=== PATIENT | male | born 1980 | race Caucasian/White ===

== ENCOUNTER → 2020-09-28 15:50 | Outpatient (CLI) | payer BC, SELFPAY ==
--- NOTE | ~2020-09-28 | XR_ITS ---
EXAMINATION: XR shoulder LT min 2V DATE: 09/28/2020 16:05 INDICATION: Left shoulder pain. TECHNIQUE: 4 views of left shoulder were obtained. COMPARISON: None. FINDINGS: Bone alignment is normal. No fracture. Glenohumeral joint is normal. There is mild acromioc lavicular joint osteoarthritis. There is calcific tendinitis of the rotator cuff. IMPRESSION: 1. Calcific tendinitis of the rotator cuff. 2. Mild left acromioclavicular joint osteoarthritis. Reviewed, dictated and finalized at location A.
== END ==
PROVIDERS: PCP Nurse Practitioner Family; Visit Provider Nurse Practitioner Family
DX: M75.32 Calcific tendinitis of left shoulder (principal); M19.012 Primary osteoarthritis, left shoulder
CPT/HCPCS: 73030

== ENCOUNTER → 2021-01-17 08:55 | Outpatient (CLI) | payer BC, SELFPAY ==
--- NOTE | ~2021-01-17 | MR_ITS ---
EXAMINATION: MR shoulder LT wo con DATE: 01/17/2021 09:50 INDICATION: Left shoulder pain TECHNIQUE: Magnetic resonance imaging (MRI) of the left shoulder was performed without intravenous co ntrast. Sequences included axial PD-weighted FS FSE, coronal oblique PD-weighted FS FSE, coronal obli que T2-weighted FS FSE, sagittal PD-weighted FS FSE, and sagittal T1-weighted SE. COMPARISON: None. FINDINGS: Coracoacromial arch: The acromion undersurface is curved in morphology (type II). The coracoacromial ligament is normal. M ild acromioclavicular osteoarthritis. Rotator cuff: Mild supraspinatus tendinopathy with shallow bursal sided tear/fraying extending for approximately 1 cm AP and medial collateral along the distal tendon with small amount of fluid signal extending betwe en the tendon fibers but without a clearly defined measurable tear defect. The infraspinatus, teres m inor and subscapularis tendons are normal. Normal rotator cuff muscle bulk and signal. Biceps tendon, glenoid labrum and glenohumeral cartilage: Long head of the biceps tendon is normal. Glenoid labrum is normal. Glenohumeral cartilage is normal. Fluid: Physiologic amount of fluid in the glenohumeral joint and biceps tendon sheath. No loose osteochondra l bodies. Small amount of fluid in the subacromial/subdeltoid bursa consistent with mild bursitis. Bones: There is mild marrow edema underlying the superior facet footplate of the supraspinatus tendon likely related to the previous described rotator cuff disease. Otherwise normal marrow signal. No fracture or pathologic marrow replacing process. IMPRESSION: 1. Supraspinatus tendinopathy with shallow bursal sided tear/fraying of the distal infraspinatus tend on. 2. Mild subacromial/subdeltoid bursitis. Reviewed, dictated and finalized at location A. IMPRESSION: 1. Supraspinatus tendinopathy with shallow bursal sided tear/fraying of the dis terrance infraspinatus tendon. 2. Mild subacromial/subdeltoid bursitis.
== END ==
PROVIDERS: PCP Physician Assistant Medical; Visit Provider Physician Assistant Medical
DX: M25.512 Pain in left shoulder (principal); M75.52 Bursitis of left shoulder
CPT/HCPCS: 73221

== ENCOUNTER 2021-06-15 15:47 | Outpatient (CLI) | payer BC, SELFPAY ==
--- NOTE | 2021-06-15 | ECG_ITS ---
Measurements Intervals [place] Rate: 74 P: 34 VT: 171 QRS: 70 QRSD: 101 T: 54 QT: 385 QTc: 428 Interpretive Statements SINUS RHYTHM NORMAL ECG Electronically Signed On 06-15-2021 18:43:36 FENCE MANUFACTURE SUPERVISOR by Ta Escudero D.O.
[2021-06-15 17:35] LABS: LDL Cholesterol Direct 253 mg/dL
[2021-06-15 17:42] LABS: Alanine Aminotransferase 33 U/L (4-50); Alkaline Phosphatase 74 U/L (38-126); Anion Gap 11 mmol/L (8-16); Aspartate Amino Transferase 28 U/L (17-59); Bilirubin,Total 0.4 mg/dL (0.2-1.3); Blood Urea Nitrogen 14 mg/dL (9-20); Calcium 9.8 mg/dL (8.4-10.2); Carbon Dioxide 25 mmol/L (22-30); Chloride 100 mmol/L (98-107); Estimated Glomerular Filt Rate > 60; Glucose 82 mg/dL (65-110); HDL Direct 48 mg/dL; Potassium 3.6 mmol/L (3.4-5.0); Sodium 136 mmol/L (137-145); Triglycerides 373 mg/dL (<150)
[2021-06-15 19:10] LABS: Cholesterol 369 mg/dL (0-200)
== END 2021-06-15 15:48 | disposition home or self-care (01) ==
LOC: ANHCARD 15:54
PROVIDERS: PCP Family Medicine; Visit Provider Nurse Practitioner Family
DX: E78.5 Hyperlipidemia, unspecified (principal)
CPT/HCPCS: 36415; 80053; 80061; 93005

== ENCOUNTER 2022-03-15 12:27 | Outpatient (CLI) | payer BC, SELFPAY ==
--- NOTE | ~2022-03-15 | US_ITS ---
US abdomen complete EXAMINATION: US Abdomen Complete INDICATION: Left upper quadrant pain PROCEDURE: Realtime High Resolution abdomen ultrasound. COMPARISON: No prior studies for comparison FINDINGS: There are gallbladder polyps measuring 5 mm or less. No gallstones, gallbladder wall thicke rita or pericholecystic fluid. Common bile duct measures 5 mm. Liver echotexture within normal limits without focal mass. Pancreas within normal limits. Pancreati c tail is obscured by bowel gas. Spleen is unremarkeable. Renal echotexture is within normal limits bilaterally without hydronephrosis, contour deforming mass or renal stone. Right kidney measures 10.6 cm. Left kidney measures 10.6 cm. Visualized aspects of the aorta and IVC are within normal limits. Portal vein is patent. No sonograph ic Tamez's sign indicated by the technologist. IMPRESSION: 1: Gallbladder polyps. Reviewed, dictated and finalized at location B. IMPRESSION: 1: Gallbladder polyps.
== END 2022-03-15 12:28 ==
LOC: MICIMG 12:28
PROVIDERS: PCP Nurse Practitioner Family; Visit Provider Nurse Practitioner Family
DX: R10.12 Left upper quadrant pain (principal); K82.4 Cholesterolosis of gallbladder
CPT/HCPCS: 76700

== ENCOUNTER 2024-01-14 05:49 | Emergency (ER) | payer BC, SELFPAY ==
[2024-01-14] VITALS (27 sets, daily range): BP systolic 110–148; BP diastolic 76–98; PULSE 78–96; RESP 10–29; O2SAT 94–100
--- NOTE | ~2024-01-14 | XR_ITS ---
Clinical Indication: Shortness of breath PA and lateral views of the chest: Comparison: None Findings: The lungs are clear, without evidence of focal consolidation or pleural effusion. Cardiome diastinal silhouette is within normal limits. Bones and soft tissues are unremarkable. Impression: Normal chest. Reviewed, dictated and finalized at [facility]. Impression: Normal chest.
--- NOTE | 2024-01-14 06:01 | ECG_ITS ---
Test Date: 2024-01-14 06:12:00 Measurements Intervals [place] Rate: 92 P: 37 CA: 164 QRS: 68 QRSD: 91 T: 48 QT: 345 QTc: 428 Interpretive Statements SINUS RHYTHM NORMAL ECG No previous ECG available for comparison Electronically Signed On 01-14-2024 06:23:39 CDT by Ta Escudero D.O.
--- NOTE | 2024-01-14 06:10 | ED.SOB ---
HPI - SOB/Dyspnea General Chief Complaint: Shortness of Breath/Dyspnea <Thor Goodwin DO - Last Filed: 01/14/24 07:16> Stated Complaint: sob <Thor Goodwin DO - Last Filed: 01/14/24 07:16> Time Seen by Provider: 01/14/24 06:04 <Thor Goodwin DO - Last Filed: 01/14/24 07:16> Source: patient <Thor Goodwin DO - Last Filed: 01/14/24 07:16> Limitations: no limitations <Thor Goodwin DO - Last Filed: 01/14/24 07:16> History of Present Illness HPI Narrative: Patient is a 43-year-old male presents to the emergency department complaining of pain when he takes a big deep breath in his chest. Patient notes you sleeping any woke up with that around 3:00 a.m., was not having it prior to going to bed, it seems to feeling present when he takes of a deep breath in. Patient notes he is on day 9 or 10 of COVID and is overall been seeming to get slightly better however the past approximately 3 days his throat it has been getting a lot more sore. Patient also notes he has been having cough with COVID that is overall seems to be improving and is productive of slight amount of clear sputum. Patient denies recent injuries, abdominal pain, vomiting, diarrhea. <Thor Goodwin DO - Last Filed: 01/14/24 07:16> Related Data Allergies/Adverse Reactions: Allergies Allergy/AdvReac Type Severity Reaction Status Date / Time No Known Allergies Allergy Verified 01/14/24 06:28 <Thor Goodwin DO - Last Filed: 01/14/24 07:16> Review of Systems Review of Systems: A 10 system review of systems was completed on the patient and is negative except for what is stated in the HPI. Nursing and ancillary documentation was reviewed. <hTor Goodwin DO - Last Filed: 01/14/24 07:16> PMFSH Past Medical History Medical History: Medical History Abnormal MRI, shoulder BMI 30.0-30.9,adult Body mass index [BMI] 25.0-25.9, adult (07/13/15) Elective procedure for unacceptable cosmetic appearance Hematochezia <Thor Goodwin DO - Last Filed: 01/14/24 07:16> Surgical History Surgical History: Surgical History History of appendectomy <Thor Goodwin DO - Last Filed: 01/14/24 07:16> Family History Family History: Family History Father Acute myocardial infarction Family history of heart disease in male family member before age 55 Mother Tobacco abuse Sibling No problems noted. <Thor Goodwin DO - Last Filed: 01/14/24 07:16> Social History Social History: Social History Smoking status: Never smoker Second hand tobacco smoke exposure: Yes Alcohol intake: former Substance use: former Substance use type: marijuana Do You Feel Safe in your Home?: Yes Lack of Transportation: No Lack of Food: Never True Current Housing: I Have Housing Concerned About Future Housing: No Difficulty Paying Gas/Electric Bills: No Difficulty Paying for Meds: No Currently Unemployed: No Education: Master's Degree or Higher Difficulty w/ Childcare or Family Care: No Living arrangements: with family Occupation/Education: occupation 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 Gender identity (if verbalized by the patient): Male <Thor Goodwin DO - Last Filed: 01/14/24 07:16> Comments At time of signature, I have reviewed and agree with nursing past medical, surgical, social and family history unless otherwise noted. Please see the nursing chart for further information. There is no relevant family history pertinent to the presenting complaint. <Thor Goodwin DO - Last Filed: 01/14/24 07:16> Exam Narrative: CONST: No acute distres
[2024-01-14] MEDS: KETOROLAC 15 MG/ML VIAL (*BKC) IV PUSH (06:22)
[2024-01-14 06:29] LABS: Basophils Absolute Auto 0.1 K/mm3 (0.0-0.1); Basophils Percent Auto 0.5 % (0.2-1.2); Eosinophils Absolute Auto 0.2 K/mm3 (0-0.3); Eosinophils Percent Auto 1.4 % (0-4.4); Hematocrit 39.2 % (42.0-52.0); Hemoglobin 13.3 g/dL (14.0-18.0); Immature Granulocyte Absolute 0.06 K/mm3 (0.00-0.031); Immature Granulocyte Percent A 0.6 % (0-0.5); Lymphocytes Absolute Auto 3.38 K/mm3 (0.9-3.2); Lymphocytes Percent Auto 31.5 % (18.3-44.2); Mean Corpuscular HGB Conc 33.9 g/dl (32-36); Mean Corpuscular Hemoglobin 30.3 pg (26-34); Mean Corpuscular Volume 89.3 fl (80-100); Mean Platelet Volume 9.5 fl (7.4-10.4); Monocytes Absolute Auto 0.8 K/mm3 (0.1-0.6); Monocytes Percent Auto 7.1 % (2.6-8.5); Neutrophils Absolute Auto 6.3 K/mm3 (1.3-6.7); Neutrophils Percent Auto 58.9 % (45.5-73.1); Platelet Count Result 336 k/mm3 (150-375); Red Blood Count 4.39 M/mm3 (4.6-6.20); Red Cell Distribution Width 13.2 % (11.5-14.5); White Blood Count 10.7 K/mm3 (4.5-10.0)
[2024-01-14 06:35] LABS: Alanine Aminotransferase 29 U/L (6-50); Albumin Level 4.1 g/dL (3.5-5.1); Alkaline Phosphatase 72 U/L (38-126); Anion Gap 11 mmol/L (4-12); Aspartate Amino Transferase 27 U/L (17-59); Bilirubin,Total 0.4 mg/dL (0.2-1.3); Blood Urea Nitrogen 17 mg/dL (9-20); Carbon Dioxide 27 mmol/L (22-30); Chloride 100 mmol/L (98-107); Estimated CRCL calculation 98 ml/min; Estimated Glomerular Filt Rate > 60; Glucose 93 mg/dL (65-110); Lipase 146 U/L (23-300); Magnesium 2.1 mg/dL (1.6-2.3); Potassium 3.9 mmol/L (3.4-5.0); Sodium 138 mmol/L (137-145)
[2024-01-14 06:47] LABS: Troponin I < 0.012 ng/mL (0.000-0.034)
[2024-01-14 06:51] LABS: Strep Group A RT-PCR NOT DETECTED (Negative)
[2024-01-14 07:37] LABS: Monoscreen Negative (Negative); Negative Monotest Control Negative (Negative); Positive Monotest Control Positive (Positive)
--- NOTE | 2024-01-14 08:59 | ECG_ITS ---
Test Date: 2024-01-14 09:02:23 Measurements Intervals [place] Rate: 89 P: 39 MD: 170 QRS: 73 QRSD: 93 T: 45 QT: 369 QTc: 450 Interpretive Statements SINUS RHYTHM NORMAL ECG Compared to ECG 01/14/2024 06:12:00 No significant changes Electronically Signed On 01-14-2024 09:39:15 CDT by Ta Escudero D.O.
[2024-01-14 09:31] LABS: Troponin I < 0.012 ng/mL (0.000-0.034)
[2024-01-14] MEDS: dexAMETHasone SOD PHOS INJ 10 MG/ML 1 ML VIAL IM (11:41)
== END 2024-01-14 11:45 | disposition home or self-care (01) ==
PROVIDERS: Emergency Medicine; Emergency Provider Student in an Organized Health Care Education/Training Program; PCP Family Medicine
DX: R09.1 Pleurisy (principal); J02.9 Acute pharyngitis, unspecified
CPT/HCPCS: 36415; 71046; 80053; 83690; 83735; 84484; 85025; 85380; 86308; 87651; 93005; 96372; 96374; 99284; J1100; J1885

== ENCOUNTER 2024-07-07 10:28 | Outpatient (CLI) | payer BC, SELFPAY ==
--- NOTE | 2024-07-07 10:40 | ECG_ITS ---
Test Date: 2024-07-07 10:49:47 Measurements Intervals [place] Rate: 86 P: 44 HI: 168 QRS: 78 QRSD: 92 T: 54 QT: 359 QTc: 430 Interpretive Statements SINUS RHYTHM Compared to ECG 01/14/2024 09:02:23 No significant changes Electronically Signed On 07-07-2024 10:52:50 HAND STEMMER by Geoffrey Agosto M.D.
--- OUTSIDE RECORDS SUMMARY | 2024-07-09 17:27 | XMS_ITS | Patient Health Summary ---
Author Organization [facility] Address [address] [place] [address] Care Team Providers Care Aerodynamic Consultant Name Role Phone Unavailable Primary Care Provider Unavailabl e Note from [facility],non-owned Affiliates and Associated Physician Practices is amultiple site organization consisting of ambulatory clinics and hospital sitesin [place], [place], [place] and [place]. This disclosure is being madepursuant to the Care Everywhere program and may not contain all information available regarding this patient. Last updated 18.[facility] Social History Tobacco Use Types Packs/Day Years Used Date Smoking Tobacco: Never Assessed Sex and Gender Information Value Date Recorded Sex Assigned at Not on file Gender Identity Not on file Sexual Orientation Not on file
--- OUTSIDE RECORDS SUMMARY | 2024-07-09 17:27 | XMS_ITS | Clinical Summary ---
Author Organization [facility] Address [address] [place] [address] Care Team Providers Care Captain Of Guards Name Role Phone Unavailable Primary Care Provider Unavailabl e Source Comments [facility],non-owned Affiliates and Associated Physician Practices is amultiple site organization consisting of ambulatory clinics and hospital sitesin [place], [place], [place] and [place]. This disclosure is being madepursuant to the Care Everywhere program and may not contain all information available regarding this patient. Last updated 18.[email or web address] [email or web address] Social History Tobacco Use Types Packs/Day Years Used Date Smoking Tobacco: Never Assessed Sex and Gender Information Value Date Recorded Sex Assigned at Not on file Gender Identity Not on file Sexual Orientation Not on file Plan of Treatment Health Maintenance Due Date Last Done Comments LIPID TESTING 1982 HIV SCREENING 1997 HEPATITIS C SCREENING 03/14/2000 DTAP/TDAP/TD VACCINES (1 - Tdap) 2001 HEPATITIS B VACCINE (1 of 3 - 19+ 3-dose series) 2001 COVID-19 VACCINE (2023-2 5 season) 2024 INFLUENZA VACCINE (#1) 2024 DEPRESSION SCREENING 06/17/2024 ZOSTER VACCINE (1 of 2) 2032 HIB VACCINE Aged Out No longer eligi ble based on patient's age to complete this topic HPV VACCINE Aged Out No longer eligi ble based on patient's age to complete this topic MENINGOCOCCAL (Group B) VACCINE Aged Out No longer eligible based on patient's age to complete this topic MENINGOCOCCAL VACCINE Aged Out No mery paula eligible based on patient's age to complete this topic PNEUMOCOCCAL VACCINE Aged Out No long er eligible based on patient's age to complete this topic
--- OUTSIDE RECORDS SUMMARY | 2024-07-09 17:27 | XMS_ITS | Referral Summary ---
Author Organization [facility] Address [address] [place] [address] Care Team Providers Care Fitting Room Attendant Name Role Phone Unavailable Primary Care Provider Unavailabl e Source Comments [facility],non-owned Affiliates and Associated Physician Practices is amultiple site organization consisting of ambulatory clinics and hospital sitesin [place], [place], [place] and [place]. This disclosure is being madepursuant to the Care Everywhere program and may not contain all information available regarding this patient. Last updated 18.[facility] Social History Tobacco Use Types Packs/Day Years Used Date Smoking Tobacco: Never Assessed Sex and Gender Information Value Date Recorded Sex Assigned at Not on file Gender Identity Not on file Sexual Orientation Not on file Plan of Treatment Not on file
--- OUTSIDE RECORDS SUMMARY | 2024-07-09 17:28 | XMS_ITS | Encounter Summary ---
Author Organization [facility] Address [address] [place] [address]. [place], [place] [id number] [place] [address] Care Team Providers Care Pricing Clerk Name Role Phone Unavailable Primary Care Provider Unavailabl e Encounter Details Date Type Department Care Team (Late st Contact Info) Description 04/22/2018 Abstract [facility] Conversion Md, Generic Conversion, Social History Tobacco Use Types Packs/Day Years Used Date Smoking Tobacco: Never Assessed Sex and Gender Information Value Date Recorded Sex Assigned at Not on file Legal Sex Male 8:06 AM CDT Gender Identity Not on file Sexual Orientation Not on file documented as of this encounter Plan of Treatment Not on file documented as of this encounter Visit Diagnoses Not on filedocumented in this encounter
--- OUTSIDE RECORDS SUMMARY | 2024-07-09 17:28 | XMS_ITS | Clinical Summary ---
Author Organization [facility] Address [address] [place] [address]. [place], [place] [id number] [place] [id number] Care Team Providers Care Systems Auditor Name Role Phone Unavailable Primary Care Provider Unavailabl e Social History Tobacco Use Types Packs/Day Years Used Date Smoking Tobacco: Never Assessed Sex and Gender Information Value Date Recorded Sex Assigned at Not on file Legal Sex Male 8:06 AM CDT Gender Identity Not on file Sexual Orientation Not on file Last Filed Vital Signs Vital Sign Reading Time Taken Comments Blood Pressure 144/96 09/16/2014 4:48 PM CDT Pulse 100 09/16/2014 4:48 PM CDT Temperature - - Respiratory Rate - - Oxygen Saturation - - Inhaled Oxygen Concentration - - Weight 81.6 kg (180 lb) 02/01/2012 9:13 AM CDT Height 175.3 cm (5' 9 ) 10/11/2011 8:41 AM CDT Body Mass Index 26.58 10/11/2011 8:41 AM CDT Plan of Treatment Health Maintenance Due Date Last Done Comments Annual Physical 1985 Hepatitis C 2000 DTaP, Tdap and Td Vaccines ( 1 - Tdap) 2001 Hepatitis B Vaccines (1 of 3 - 19+ 3-dose series) 2001 COVID-19 Vaccine (2023-2 5 season) 2024 Influenza Adult (#1) 2024 04/17/2011 HPV Vaccines Aged Out No longer eligi ble based on patient's age to complete this topic Meningococcal Vaccine Aged Out No mery paula eligible based on patient's age to complete this topic Pneumococcal Vaccine: Pediat rics (0 to 5 Years) and At-Risk Patients (6 to 64 Years) Aged Out No longer eligi ble based on patient's age to complete this topic RSV Immunizations Under 20 Months Aged Out No longer eligible based on patient's age to complete this topic
== END 2024-07-07 10:29 | disposition home or self-care (01) ==
PROVIDERS: PCP Family Medicine; Visit Provider Nurse Practitioner Adult Health
DX: E78.5 Hyperlipidemia, unspecified (principal); I10 Essential (primary) hypertension; Z79.899 Other long term (current) drug therapy; Z13.1 Encounter for screening for diabetes mellitus; Z00.00 Encounter for general adult medical examination without abnormal findings
CPT/HCPCS: 93005